=== PATIENT | male | born 1980 | race Two or more races ===

== ENCOUNTER 2020-05-20 09:16 | Outpatient (CLI) | payer OTHER ==
--- NOTE | 2020-05-20 10:06 | SLEEP CARE CONSULTATION ---
Information from patient questionnaire entered by Josee Omalley. I have reviewed and concur with the information entered by Josee Omalley. This document represents the service I personally performed and the decisions made by me, Jennifer Faith MD, [facility]. History of Present Illness Service Date and Time: 05/20/2020915 Reason for Visit: New patient Chief Complaint: reports: Unrefreshed sleep, Snoring, Excessive daytime sleepiness, Observed pauses in breathing Date of Onset: 4-5 years Usual bedtime: 2200 Time it takes to fall asleep: 2-3 hours Snores at night: Yes Observed to quit breathing while asleep: Yes Sleeps alone due to snoring: Yes (sometimes) Number of times waking at night: 1-2 Reasons for waking at night: reports: Snoring Toss, Turn, or Twitch while sleeping: Yes Recalls having dreams: No Usually gets out of bed at: 0600 Feels refreshed in the morning: No Morning headache: No Sleepy or fatigued during the day: Yes Ever fallen asleep while driving: No Takes day naps: Yes (sometimes) Dreams during day naps: No Prior sleep studies: No Additional HPI information: I had the pleasure of seeing Mr. Jensen today regarding the possibility of him having a sleep disorder. As you know, he is a 39 year old gentleman who complains of loud snore, observed apneas, unrefreshed sleep, and excessive daytime sleepiness for the past 4 5 years. He also has sleep onset insomnia. Subjective Initial [place] Sleepiness Scale score: 12 Past Medical History Past Medical History: reports: Hypertension (not on medication) Social History The patient's occupation is active . Patient is and lives in [place]. Have you smoked in the past 12 months: Yes Cigarettes per day (20/pack): 1 (10 per week) Years of smokin Quit date: on and off Smoking Pack Years: 0 Alcohol use: Yes Alcohol amount and frequency: 6 beers/weekend Caffeine use: Yes Caffeine amount and frequency: 2 cups coffee/day Family History Family history of sleep disordered breathing: No Allergies and Home Medications Drug allergies reviewed: Yes Home medication list reviewed: Yes (None) Review of Systems Cardiovascular: reports: high blood pressure, chest pain Respiratory: denies: shortness of breath, wheeze, sputum production, chronic cough, other Gastrointestinal: denies: heartburn, difficulty swallowing, nausea, vomitting, diarrhea, abdominal pain, other Urinary: denies: incontinence, frequency, urgency, impotence, other Neurological: denies: headaches, seizure, head trauma, disorientation, speech dysfunction, gait or balance problems, fainting or unconsciousness, other Psychiatric: denies: Attention Deficit Hyperactivity, anxiety, depression, mood disorder, claustrophobia, other Ear/Nose/Throat: denies: nasal congestion, sinus problems, nose bleeds, dry mouth/throat, hoarseness, injury to nose, tonsillectomy, wisdom teeth removed, other Endocrine: denies: thyroid disease, history of goiter, sluggishness, too hot or cold, excessive thirst, increased appetite, increased urination, unexplained weakness, other Musculoskeletal: reports: back pain Immunologic: denies: sneezing, rash, itching, allergies to food or environment, other Physical Exam Vital signs obtained and entered by: To minimize the risk of COVID-19 exposure, detailed exam was not performed. Height: 5 ft 6 in Weight: 185 lb Body Mass Index: 29.8 BMI Classification: Overweight Impression and Plan IMPRESSION: 1. Obstructive Sleep Apnea-Hypopnea Syndrome, as suggested by history of loud and irregular snoring, observed cessation of breath while asleep, unrefreshed sleep, and daytime hypersomnolence. Narrow oropharynx and obesity are common predisposing factors for obstructive sleep apnea-hypopnea syndrome. Untreated obstructive sleep apnea can also cause hypertension. Pathophysiology of sleep- disordered breathing was discussed. I recommend proceeding to polysomnography to confirm the diagnosis and to assess severity. If he has significant sleep disordered breathing, a manual CPAP titration study will also be performed to find the optimal treatment pressure. I informed the patient of what the sleep studies involve and after some discussion, he agreed to proceed. 2. Insomnia, involving the sleep onset. This is due to delayed sleep phase syndrome. Because he wakes up between 9 10 am on weekends, his physiologic bedtime is not until 1 am. Therefore, going to bed at 10 pm on week nights is too early. The solution is to not wake up any later than 7 am on weekends. Plan: 1. Schedule polysomnography + manual CPAP titration study 2. Avoid long distance driving or when feeling sleepy. 3. Avoid alcohol, sedative and muscle relaxant around bedtime. 4. Attempt to some lose weight. 5. Maintain a regular wake up time and spend no more than 8 hours in bed at night. Avoid naps. 6. Return in 1 to 2 weeks after the study to discuss results and initiate therapy. Visit Type: In Office Time Spent with Patient (minutes): 15 Provider Statement: I spent 100% of the Face to Face Visit with the patient with greater than 50% spent counseling the patient and coordination of care.
== END 2020-05-20 09:17 | disposition home or self-care (01) ==
LOC: SC 09:16
PROVIDERS: ATTEND Internal Medicine Pulmonary Disease
DX: R06.83 Snoring (principal); G47.21 Circadian rhythm sleep disorder, delayed sleep phase type; R06.81 Apnea, not elsewhere classified; G47.8 Other sleep disorders; G47.10 Hypersomnia, unspecified; F17.210 Nicotine dependence, cigarettes, uncomplicated; E66.3 Overweight; Z68.29 Body mass index [BMI] 29.0-29.9, adult; I10 Essential (primary) hypertension
CPT/HCPCS: 99203; 99212

== ENCOUNTER 2020-06-17 19:13 | Outpatient (CLI) | payer OTHER | END 2020-06-17 19:14 | disposition home or self-care (01) | LOC: SC 19:13 | PROVIDERS: ATTEND Internal Medicine Pulmonary Disease | DX: G47.33 Obstructive sleep apnea (adult) (pediatric) (principal); G47.61 Periodic limb movement disorder | CPT/HCPCS: 95810 ==

== ENCOUNTER 2020-06-19 11:16 | Outpatient (CLI) | payer OTHER ==
--- NOTE | 2020-06-19 11:49 | SLEEP CARE CONSULTATION ---
Information from patient questionnaire entered by Alise Crane. I have reviewed and concur with the information entered by Alise Crane. This document represents the service I personally performed and the decisions made by , Sofia Boone ARNP. History of Present Illness Service Date and Time: 06/19/2020 1116 Initial [place] Sleepiness Scale score: 12 (in 2020) Current [place] Sleepiness Scale score: 14 Additional HPI information: KAREN NGO returns for follow up and results of the recently performed polysomnography. I explained the pathophysiology behind obstructive sleep apnea. We then spent quite a bit of time discussing different treatment options. For mild obstructive sleep apnea, surgery and oral appliance are alternatives to nasal CPAP therapy but in moderate or severe cases, nasal CPAP is the most effective and reliable treatment. Because apnea is primarily in supine position, then positional management therapy could be effective. Methods discussed such as positioning with pillows, using a T-shirt with tennis balls in the back, and shown commercial products that have a pillow format on back to prevent supine sleep. I reviewed the impact of weight changes on sleep apnea and strongly recommended losing weight. After some discussion, the patient opted to go with the nasal CPAP therapy. Nasal autoCPAP set at 4-15 cmH20 will be ordered with rationale explained. A manual titration study will be ordered if unable to find optimal pressure with office adjustments. I explained how CPAP machine works with sample devices [employer] Dreamstation and [employer] [id number] and what to expect when using the machine. Using CPAP every night in order to get used to it was emphasized. Patient advised to put CPAP mask on before getting into bed so as not to fall asleep without CPAP. To assist acclimation to CPAP use, it could also be used for a short time during day while reading or watching TV. The patient was instructed to call the CPAP supplier to discuss any mechanical problem that may occur. If the mask given is uncomfortable or is difficult to keep on through the night even with adjustment, contact the CPAP supplier as many will replace with another mask style if notified before 30 days. If snoring or perceives is not getting enough air or too much air from the machine, notify this office. AAS patient education PAP tips reviewed and given to patient. Patient counseled not drink alcohol less than 4 hours before bedtime as it can increase snoring and apnea. Patient was cautioned about risks of drowsy driving until sleepiness symptoms resolve. Sleep Study - Results Type of Sleep Study: Polysomnography Prior sleep studies: No Polysomnography/Home Sleep Study results: IMPRESSION: The quality of the study is good. The patient had reduced sleep efficiency due to sleep onset insomnia and frequent awakenings during the night. The sleep architecture was abnormal for sleep fragmentation and reduced amount of time spent in slow wave sleep (N3). Respiratory monitoring showed mild obstructive sleep apnea-hypopnea (AHI = 7.8) associated with frequent arousals, oxyhemoglobin desaturation and mild hypoxia (shandra oxygen saturation of 89%). The respiratory events occurred almost exclusively during supine sleep (supine AHI = 15.6; non-supine = 1.23). Snore was infrequent and light in intensity. There was severe periodic leg movement of sleep contributing to the sleep fragmentation. Cardiac rhythm was normal sinus rhythm without significant arrhythmia. No abnormal behavior (parasomnia) observed during the night. Allergies and Home Medications Drug allergies reviewed: Yes (NKDA) Home medication list reviewed: Yes (no changes) Review of Systems Review of systems same as previous: Yes (no changes) Physical Exam Heart Rate: 82 O2 Saturation: 98 Height: 5 ft 6 in Weight: 190 lb Body Mass Index: 30.7 BMI Classification: Obese Impression and Plan 1. Obstructive Sleep Apnea-Hypopnea Syndrome, mild, with lowest oxygen saturation of 89%. This is the possible cause of the patients symptoms of unrefreshed sleep, and excessive daytime sleepiness. Patient also advised to keep to a consistent sleep schedule and get up at the same time each day. He was also advised to maintain about 7-9 hours a of sleep nightly. Positive pressure therapy could benefit his hypertension and I highly recommended using the CPAP machine, patient agreed with plan. As mentioned above, the patient will be started on nasal autoCPAP therapy with pressure set at 4-15 cmH2O. Compliance guidelines also reviewed. A copy of compliance guidelines will be given for reference at check out. Because the apnea is more severe supine, I instructed to avoid sleeping supine using pillow positioning until able to start CPAP use. 2. Periodic limb movement, severe, that did contribute to fragmentation of the patients sleep. Periodic limb movement of sleep (PLMS) is characterized by episodes of repetitive limb movements that occur during sleep and usually involve the lower limbs. The etiology is unknown but can be associated with restless leg syndrome (RLS), neuropathy, spinal cord diseases, kidney disease, rheumatological disorders, narcolepsy, obstructive sleep apnea, and REM sleep behavior disorder. Other factors that can increase PLMS and/or RLS are heredity and iron deficiency as reflected by a low serum ferritin level below 50 to 75mcg / L. Several medications can precipitate or aggravate PLMS such as selective serotonin re-uptake inhibitor antidepressants, tricyclic antidepressants, lithium, and dopamine receptor antagonists with the exception of bupropion. Caffeine can also aggravate PLMS and should be avoided. Sleep hygiene methods can also improve sleep as well as lifestyle changes such as regular exercise. Patient was advised that further evaluation is indicated if his symptoms do not improve or become worse. * Nasal auto CPAP therapy, pressure at 4-15 cm H2O. * Follow up with PCP on severe periodic limb movement * Attempt to lose weight. * Avoid alcohol consumption near bedtime. * Avoid supine sleep until using CPAP. * The patient is again cautioned about driving until sleepiness completely res olves. * Return one month after CPAP obtained. I will assess response to therapy and compliance at that time. Visit Type: In Office Time Spent with Patient (minutes): 19 Provider Statement: I spent 100% of the Face to Face Visit with the patient with greater than 50% spent counseling the patient and coordination of care.
== END 2020-06-19 11:17 | disposition home or self-care (01) ==
LOC: SC 11:16
PROVIDERS: ATTEND Nurse Practitioner Family
DX: G47.33 Obstructive sleep apnea (adult) (pediatric) (principal); G47.61 Periodic limb movement disorder; E66.9 Obesity, unspecified; Z68.30 Body mass index [BMI] 30.0-30.9, adult
CPT/HCPCS: 99212; 99213

== ENCOUNTER 2020-10-16 12:55 | Outpatient (CLI) | payer OTHER ==
--- NOTE | 2020-10-16 13:44 | SLEEP CARE CONSULTATION ---
Information from patient questionnaire entered by Madhav Sanabria. I have reviewed and concur with the information entered by Madhav Sanabria. This document represents the service I personally performed and the decisions made by , Sofia Boone ARNP. History of Present Illness Service Date and Time: 10/16/2020 1255 Previous diagnosis: Mild, Obstructive Sleep Apnea-Hypopnea Syndrome AHI: 7.8 Reason for follow up: first compliance (07/23/20) Equipment type: CPAP Equipment obtained from: Other ([facility]; got initial supplies so far) Mask style: Full face Mask brand: Resmed Backup mask available: No (will keep mask once replaced to have a back up) Last cushion change: 2 weeks ago Prior sleep studies: No Year and Where: 2019 [facility] Type of Sleep Study: Polysomnography HPI additional information: KAREN NGO was diagnosed to have mild, AHI 7.8, obstructive sleep apnea- hypopnea syndrome and returned today for CPAP therapy first compliance follow- up. CPAP Compliance Data - Data Reviewed with Patient Average duration of nightly device use: 3 h 4 min Compliance rate %: 13 Current pressure setting (cmH2O): 4-15 (median 5.7, average 8.3 and max 9.4 cmH2O) Average residual AHI: 1.5 Central apnea: 0.1 Obstructive apnea: 0.3 Subjective Patient concerns: reports: mask discomfort (whole mask hard to sleep in), air b lowing in eyes (occasional small amounts with face movement), dry mouth, nose, throat. denies: aerophagia, mask leak noise, condensation in mask/hose, nasal congestion, epistaxis, other Observed to snore while using device: No Current pressure setting perceived as: comfortable On therapy, patient: reports: sleeping better, awakening more refreshed, being more awake and alert during the day, more rested overall. denies: drowsiness while driving Initial [place] Sleepiness Scale score: 12 (in 2019) Current [place] Sleepiness Scale score: 14 Allergies and Home Medications Drug allergies reviewed: Yes (NKDA) Home medication list reviewed: Yes (no changes) Review of Systems Review of systems same as previous: Yes (no changes) Physical Exam Heart Rate: 68 O2 Saturation: 99 Height: 5 ft 6 in Weight: 199 lb Body Mass Index: 32.1 BMI Classification: Obese Impression and Plan 1. Obstructive Sleep Apnea-Hypopnea Syndrome, mild, with poor treatment compliance and good apnea control. On CPAP therapy, the patient has better sleep quality and is more rested overall. Karen states he has already seen some benefits because he is waking up feeling refreshed with energy and has reduced naps during the day. He has had some mask discomfort that causes him to take the mask off a few hours after going to sleep. This is usually caused by him changing to sleep on his side or stomach. He gets a little bit of air leaking in his eyes and it gets hard to tolerate the mask at that point. Mask leaks can be reduced by washing mask daily and changing mask cushions more frequently to improve mask seal and comfort. Additionally, mask leaks predominately from when patient sleeps on their side can be reduced by using a CPAP pillow. A CPAP pillow sample was shown. This and other styes can be purchased online. He has also had some mouth dryness in the mornings. Oral dryness can be reduced by adjusting humidity setting higher or heated hose lower or by adjusting both settings. Verbal instructions given on how to change humidity and heated hose settings with rationale explaining why to change. I encouraged him to increase time in the mask to at least 4 hours and try not to skip any nights of use. He voiced understanding. I will adjust his pressure to 6-9 cmH2O to reflect his pressure usage. Patient's apnea severity and rationale for treatment to reduce apnea, improve sleep quality and reduce cardiovascular and cerebrovascular events was reviewed. I also reviewed the benefit of consistent device use of CPAP for hypertension. * Change auto CPAP pressure to 6-9 cmH2O * Notify me if snoring with mask or feeling that the pressure is too much or too little * Attempt to lose weight * Call this office if any problems using CPAP * Return for follow up in 1-2 months, or sooner if concerns arise Counseling Topics: Spare mask, Weight loss health impact Visit Type: In Office Time Spent with Patient (minutes): 22 Provider Statement: I spent 100% of the Face to Face Visit with the patient with greater than 50% spent counseling the patient and coordination of care.
== END 2020-10-16 12:56 | disposition home or self-care (01) ==
LOC: SC 12:55
PROVIDERS: ATTEND Nurse Practitioner Family
DX: G47.33 Obstructive sleep apnea (adult) (pediatric) (principal); E66.9 Obesity, unspecified; Z68.32 Body mass index [BMI] 32.0-32.9, adult
CPT/HCPCS: 99212; 99213

== ENCOUNTER 2020-11-21 12:45 | Outpatient (CLI) | payer OTHER ==
--- NOTE | 2020-11-21 13:33 | SLEEP CARE CONSULTATION ---
Information from patient questionnaire entered by Madhav Sanabria. I have reviewed and concur with the information entered by Madhav Sanabria. This document represents the service I personally performed and the decisions made by me, Sofia Boone ARNP. History of Present Illness Service Date and Time: 11/21/2020 1245 Previous diagnosis: Mild, Obstructive Sleep Apnea-Hypopnea Syndrome AHI: 7.8 Reason for follow up: one month (followup - pressure change) Equipment obtained from: Other ([facility]; getting supplies as needed) Mask style: Full face Mask brand: Resmed Backup mask available: Yes (old mask) Last cushion change: 2 weeks ago Prior sleep studies: No Type of Sleep Study: Polysomnography HPI additional information: KAREN NGO was diagnosed to have mild, AHI 7.8, obstructive sleep apnea- hypopnea syndrome and returned today for CPAP therapy one month pressure change follow-up. CPAP Compliance Data - Data Reviewed with Patient Average duration of nightly device use: 4 h 17 min Compliance rate %: 57 Current pressure setting (cmH2O): 6-9 Average residual AHI: 1.6 Central apnea: 0.2 Obstructive apnea: 0.6 Subjective Patient concerns: denies: aerophagia, mask discomfort, air blowing in eyes, condensation in mask/hose, nasal congestion, dry mouth, nose, throat, epistaxis, other Observed to snore while using device: No Current pressure setting perceived as: comfortable On therapy, patient: reports: sleeping better, awakening more refreshed, being more awake and alert during the day, more rested overall. denies: drowsiness while driving Initial [place] Sleepiness Scale score: 12 (in 2019) Current [place] Sleepiness Scale score: 8 Allergies and Home Medications Drug allergies reviewed: Yes (NKDA) Home medication list reviewed: Yes (no changes) Review of Systems Review of systems same as previous: Yes (no changes) Physical Exam Heart Rate: 92 O2 Saturation: 98 Height: 5 ft 6 in Weight: 197 lb Body Mass Index: 31.8 BMI Classification: Obese Impression and Plan 1. Obstructive Sleep Apnea-Hypopnea Syndrome, mild, with fair treatment compliance and good apnea control. On CPAP therapy, the patient has better sleep quality and is more rested overall. He has brought up his compliance from 20% to 57% from his last appointment. I discussed with him increasing the time in his mask since he has many days with his time less than 4 hours using the CPAP machine. I also reviewed with patient that he will get more benefits with increased time using the CPAP machine. He was advised to increase time by at least an hour on average to get his compliance numbers up. He voiced understanding and agreement with plan. Patient's apnea severity and rationale for treatment to reduce apnea, improve sleep quality and reduce cardiovascular and cerebrovascular events was reviewed. I also reviewed the benefit of consistent device use of CPAP for hypertension. * Continue autoCPAP pressure at 6-9 cmH2O * Notify me if snoring with mask or feeling that the pressure is too much or too little * Try to lose weight * Call this office if any problems using CPAP * Return for follow up in 1-2 months, or sooner if concerns arise Counseling Topics: Spare mask, Weight loss health impact Visit Type: In Office Time Spent with Patient (minutes): 14 Provider Statement: I spent 100% of the Face to Face Visit with the patient with greater than 50% spent counseling the patient and coordination of care.
== END 2020-11-21 12:46 | disposition home or self-care (01) ==
LOC: SC 12:45
PROVIDERS: ATTEND Nurse Practitioner Family
DX: G47.33 Obstructive sleep apnea (adult) (pediatric) (principal); E66.9 Obesity, unspecified; Z68.31 Body mass index [BMI] 31.0-31.9, adult
CPT/HCPCS: 99212

== ENCOUNTER 2021-01-09 12:44 | Outpatient (CLI) | payer OTHER ==
--- NOTE | 2021-01-09 13:12 | SLEEP CARE CONSULTATION ---
Information from patient questionnaire entered by Alise Crane. I have reviewed and concur with the information entered by Alise Crane. This document represents the service I personally performed and the decisions made by , Sofia Boone ARNP. History of Present Illness Service Date and Time: 01/09/2021 1244 Previous diagnosis: Mild, Obstructive Sleep Apnea-Hypopnea Syndrome AHI: 7.8 (in 2019) Reason for follow up: other (6 week ) Equipment type: CPAP Equipment obtained from: Other ([facility]; getting supplies as needed) Mask style: Full face Backup mask available: Yes (old mask) Last cushion change: 1 month Prior sleep studies: Yes Year and Where: 2019 - [facility] Type of Sleep Study: Polysomnography HPI additional information: KAREN NGO was diagnosed to have mild, AHI 7.8, obstructive sleep apnea- hypopnea syndrome and returned today for CPAP therapy 6 week compliance follow- up. CPAP Compliance Data - Data Reviewed with Patient Average duration of nightly device use: 4 hr 52 min Compliance rate %: 50 (42 days) Current pressure setting (cmH2O): 6-9 Humidity settin Average residual AHI: 2.2 Subjective Missed days of use due to: reports: mask issues (trying to get used to and tolerate wearing his mask at night) Patient concerns: denies: aerophagia, mask discomfort, air blowing in eyes, mask leak noise, condensation in mask/hose, nasal congestion, dry mouth, nose, throat, epistaxis, other Observed to snore while using device: No Current pressure setting perceived as: comfortable On therapy, patient: reports: sleeping better, awakening more refreshed, being more awake and alert during the day, more rested overall. denies: drowsiness while driving Initial [place] Sleepiness Scale score: 12 (in 2019) Current [place] Sleepiness Scale score: 12 Allergies and Home Medications Home medication list reviewed: Yes (no changes) Review of Systems Review of systems same as previous: Yes (no changes) Physical Exam Heart Rate: 97 O2 Saturation: 98 Height: 5 ft 6 in Weight: 199 lb Body Mass Index: 32.1 BMI Classification: Obese Impression and Plan 1. Obstructive Sleep Apnea-Hypopnea Syndrome, mild, with poor treatment compliance and good apnea control. On CPAP therapy, the patient has better sleep quality and is more rested overall. He feels that he just needs more time to acclimatize to wearing the mask and that it is beginning to become more comfortable. I advised him to wear mask with all sleep and try to make sure that he is getting at least 4 hours nightly with the mask on to bring up compliance. 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 He voiced understanding and agreement with plan. Patient's apnea severity and rationale for treatment to reduce apnea, improve sleep quality and reduce cardiovascular and cerebrovascular events was reviewed. I also reviewed the benefit of consistent device use of CPAP for hypertension. * Continue auto CPAP pressure at 6-9 cmH2O * Notify me if snoring with mask or feeling that the pressure is too much or too little * Attempt to lose weight * Call this office if any problems using CPAP * Return for follow up in 1 month, or sooner if concerns arise Counseling Topics: Spare mask, Weight loss health impact Visit Type: In Office Time Spent with Patient (minutes): 17 Provider Statement: I spent 100% of the Face to Face Visit with the patient with greater than 50% spent counseling the patient and coordination of care.
== END 2021-01-09 12:45 | disposition home or self-care (01) ==
LOC: SC 12:44
PROVIDERS: ATTEND Nurse Practitioner Family
DX: G47.33 Obstructive sleep apnea (adult) (pediatric) (principal); E66.9 Obesity, unspecified; Z68.32 Body mass index [BMI] 32.0-32.9, adult
CPT/HCPCS: 99212

== ENCOUNTER 2021-02-17 11:19 | Outpatient (CLI) | payer OTHER ==
--- NOTE | 2021-02-17 11:42 | SLEEP CARE CONSULTATION ---
Information from patient questionnaire entered by Alise Crane. I have reviewed and concur with the information entered by Alise Crane. This document represents the service I personally performed and the decisions made by , Sofia Boone ARNP. History of Present Illness Service Date and Time: 02/17/2021 1119 Previous diagnosis: Mild, Obstructive Sleep Apnea-Hypopnea Syndrome AHI: 7.8 (in 2019) Reason for follow up: one month Equipment type: CPAP Equipment obtained from: Other ([facility]; getting supplies as needed) Mask style: Full face Backup mask available: Yes (other mask) Last cushion change: last week Prior sleep studies: Yes Year and Where: 2019 - [facility] Type of Sleep Study: Polysomnography HPI additional information: KAREN NGO was diagnosed to have mild, AHI 7.8, obstructive sleep apnea- hypopnea syndrome and returned today for CPAP therapy one month follow-up. CPAP Compliance Data - Data Reviewed with Patient Average duration of nightly device use: 5 hr 30 min Compliance rate %: 53 (trending up) Current pressure setting (cmH2O): 6-9 Humidity settin Average residual AHI: 2.2 Subjective Missed days of use due to: reports: travel Patient concerns: denies: aerophagia, mask discomfort, air blowing in eyes, mask leak noise, condensation in mask/hose, nasal congestion, dry mouth, nose, throat, epistaxis, other Observed to snore while using device: No Current pressure setting perceived as: comfortable On therapy, patient: reports: sleeping better, awakening more refreshed, being more awake and alert during the day, more rested overall. denies: drowsiness while driving Initial [place] Sleepiness Scale score: 12 (in 2019) Current [place] Sleepiness Scale score: 12 Allergies and Home Medications Home medication list reviewed: Yes (no new meds) Review of Systems Review of systems same as previous: Yes (no changes) Physical Exam Heart Rate: 83 O2 Saturation: 98 Height: 5 ft 6 in Weight: 199 lb (with uniform and boots on) Body Mass Index: 32.1 BMI Classification: Obese Impression and Plan 1. Obstructive Sleep Apnea-Hypopnea Syndrome, mild, with poor but improving treatment compliance and good apnea control. On CPAP therapy, the patient has better sleep quality and is more rested overall. 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 His compliance is increasing and he has voiced his intention to continue with CPAP therapy. I will have him follow up in 1 month to recheck compliance before he leaves area the first time. Patient's apnea severity and rationale for treatment to reduce apnea, improve sleep quality and reduce cardiovascular and cerebrovascular events was reviewed. I also reviewed the benefit of consistent device use of CPAP for hypertension. * Continue autoCPAP pressure at 6-9 cmH2O * Notify me if snoring with mask or feeling that the pressure is too much or too little * Attempt to lose weight * Call this office if any problems using CPAP * Return for follow up in one month to recheck compliance, or sooner if concerns arise Counseling Topics: Spare mask, Weight loss health impact Visit Type: In Office Time Spent with Patient (minutes): 12 Provider Statement: I spent 100% of the Face to Face Visit with the patient with greater than 50% spent counseling the patient and coordination of care.
== END 2021-02-17 11:20 | disposition home or self-care (01) ==
LOC: SC 11:19
PROVIDERS: ATTEND Nurse Practitioner Family
DX: G47.33 Obstructive sleep apnea (adult) (pediatric) (principal); E66.9 Obesity, unspecified; Z68.32 Body mass index [BMI] 32.0-32.9, adult
CPT/HCPCS: 99212

== ENCOUNTER 2021-05-19 12:39 | Outpatient (CLI) | payer OTHER ==
--- NOTE | 2021-05-19 13:17 | SLEEP CARE CONSULTATION ---
Information from patient questionnaire entered by Alise Crane. I have reviewed and concur with the information entered by Alise Crnae. This document represents the service I personally performed and the decisions made by , Sofia Boone ARNP. History of Present Illness Service Date and Time: 05/19/2021 1239 Previous diagnosis: Mild, Obstructive Sleep Apnea-Hypopnea Syndrome AHI: 7.8 (in 2019) Reason for follow up: three month Equipment type: CPAP Equipment obtained from: Other ([facility]; getting supplies as needed) Mask style: Full face Backup mask available: Yes (old mask) Last cushion change: 2 weeks ago Prior sleep studies: Yes Year and Where: 2019 - [facility] Type of Sleep Study: Polysomnography HPI additional information: KAREN NGO was diagnosed to have mild, AHI 7.8, obstructive sleep apnea- hypopnea syndrome and returned today for CPAP therapy 3 month follow-up. CPAP Compliance Data - Data Reviewed with Patient Average duration of nightly device use: 6 hr 16 min Compliance rate %: 60 (last 30)(52 for 90 days) Current pressure setting (cmH2O): 6-9 Humidity settin Average residual AHI: 1.4 Subjective Missed days of use due to: reports: illness, travel Patient concerns: denies: aerophagia, mask discomfort, air blowing in eyes, mask leak noise, condensation in mask/hose, nasal congestion, dry mouth, nose, t hroat, epistaxis, other Observed to snore while using device: No Current pressure setting perceived as: comfortable On therapy, patient: reports: sleeping better, awakening more refreshed, being more awake and alert during the day, more rested overall, other (not feeling need for nap in middle of day). denies: drowsiness while driving Initial [place] Sleepiness Scale score: 12 (in 2019) Current [place] Sleepiness Scale score: 10 Allergies and Home Medications Home medication list reviewed: Yes (no changes) Review of Systems Review of systems same as previous: Yes (no changes) Physical Exam Heart Rate: 76 O2 Saturation: 98 Height: 5 ft 6 in Weight: 190 lb Body Mass Index: 30.7 BMI Classification: Obese Impression and Plan 1. Obstructive Sleep Apnea-Hypopnea Syndrome, mild, with fair treatment compliance and good apnea control. On CPAP therapy, the patient has better sleep quality and is more rested overall. Patient has been able to increase his compliance to 60% which is still not reaching the 70% goal. He was sent somewhere for his job and became from his gear. He was unable to use his CPAP because it was not where he was out for about a week. He resumed using it as soon as he was able to get it back. The last few weeks of use show he will be in compliance with current use pattern. I will have him follow up again in 1- 2 months to recheck compliance. Patient's apnea severity and rationale for treatment to reduce apnea, improve sleep quality and reduce cardiovascular and cerebrovascular events was reviewed. I also reviewed the benefit of consistent device use of CPAP for hypertension. * Continue auto CPAP pressure at 6-9 cmH2O * Notify me if snoring with mask or feeling that the pressure is too much or too little * Attempt to lose weight * Call this office if any problems using CPAP * Return for follow up in 1-2 months, or sooner if concerns arise Counseling Topics: Spare mask, Weight loss health impact Visit Type: In Office Time Spent with Patient (minutes): 15 Provider Statement: I spent 100% of the Face to Face Visit with the patient with greater than 50% spent counseling the patient and coordination of care.
== END 2021-05-19 12:40 | disposition home or self-care (01) ==
LOC: SC 12:39
PROVIDERS: ATTEND Nurse Practitioner Family
DX: G47.33 Obstructive sleep apnea (adult) (pediatric) (principal); E66.9 Obesity, unspecified; Z68.30 Body mass index [BMI] 30.0-30.9, adult
CPT/HCPCS: 99212

== ENCOUNTER 2021-07-15 12:55 | Outpatient (CLI) | payer OTHER ==
--- NOTE | 2021-07-15 13:16 | SLEEP CARE CONSULTATION ---
Information from patient questionnaire entered by Josee Omalley. I have reviewed and concur with the information entered by Josee Omalley. This document represents the service I personally performed and the decisions made by , Sofia Boone ARNP. History of Present Illness Service Date and Time: 07/15/2021 1255 Previous diagnosis: Mild, Obstructive Sleep Apnea-Hypopnea Syndrome AHI: 7.8 (in 2019) Reason for follow up: other (2 month) Equipment type: CPAP Equipment obtained from: Other ([facility]; getting supplies as needed) Mask style: Full face Backup mask available: Yes (old mask) Last cushion change: 2 weeks ago Prior sleep studies: Yes Year and Where: 2019 - [facility] Type of Sleep Study: Polysomnography HPI additional information: KAREN NGO was diagnosed to have mild, AHI 7.8, obstructive sleep apnea- hypopnea syndrome and returned today for CPAP therapy two month follow-up. Sleep Study - Results Type of Sleep Study: Polysomnography Prior sleep studies: Yes Year and Where: 2019 - [facility] CPAP Compliance Data - Data Reviewed with Patient Average duration of nightly device use: 5 hours 50 minutes Compliance rate %: 80 Current pressure setting (cmH2O): 6-9 Average residual AHI: 1.5 Central apnea: .1 Obstructive apnea: .5 Hypopnea: .6 Subjective Missed days of use due to: reports: illness, travel Patient concerns: denies: aerophagia, mask discomfort, air blowing in eyes, mask leak noise, condensation in mask/hose, nasal congestion, dry mouth, nose, throat, epistaxis, other Observed to snore while using device: No Current pressure setting perceived as: comfortable On therapy, patient: reports: sleeping better, awakening more refreshed, being more awake and alert during the day, more rested overall, other (does get anxious when wearing the mask). denies: drowsiness while driving Initial [place] Sleepiness Scale score: 12 (in 2019) Current [place] Sleepiness Scale score: 10 Allergies and Home Medications Home medication list reviewed: Yes (no changes) Review of Systems Review of systems same as previous: Yes (no changes) Physical Exam Heart Rate: 86 O2 Saturation: 98 Height: 5 ft 6 in Weight: 197 lb (with boots/fatigues on) Body Mass Index: 31.8 BMI Classification: Obese Impression and Plan 1. Obstructive Sleep Apnea-Hypopnea Syndrome, mild, with good treatment compliance and good apnea control. On CPAP therapy, the patient has better sleep quality and is more rested overall. Patient has managed to bring up his compliance to 80%. He is comfortable with current pressure settings and has significant improvement of his sleep apnea. He occasionally does have some anxiety when using the mask and has to take it off after only a few hours. He has been persevering through it and has been able to bring up his compliance. Patient states he has not been able to lose any weight recently but will continue to try. Patient was encouraged to lose weight for their overall health and to reduce apneas. Patient's apnea severity and rationale for treatment to reduce apnea, improve sleep quality and reduce cardiovascular and cerebrovascular events was reviewed. I also reviewed the benefit of consistent device use of CPAP for hypertension. 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 He is asking about getting enough supplies to use while he is gone. I instructed him to contact his DME company to see if he can arrange for enough supplies for his deployment. He voiced understanding and agreement. * Continue auto CPAP pressure at 6-9 cmH2O * Contact DME for supplies enough to take on deployment * Notify me if snoring with mask or feeling that the pressure is too much or too little * Attempt to lose weight * Call this office if any problems using CPAP * Return for follow up in 1 year, or sooner if concerns arise Counseling Topics: Spare mask, Weight loss health impact Visit Type: In Office Time Spent with Patient (minutes): 14 Provider Statement: I spent 100% of the Face to Face Visit with the patient with greater than 50% spent counseling the patient and coordination of care.
== END 2021-07-15 12:56 | disposition home or self-care (01) ==
LOC: SC 12:55
PROVIDERS: ATTEND Nurse Practitioner Family
DX: G47.33 Obstructive sleep apnea (adult) (pediatric) (principal); E66.9 Obesity, unspecified; Z68.31 Body mass index [BMI] 31.0-31.9, adult
CPT/HCPCS: 99212

== ENCOUNTER 2022-08-05 08:19 | Outpatient (CLI) | payer OTHER ==
--- NOTE | 2022-08-05 08:55 | SLEEP CARE CONSULTATION ---
Information from patient questionnaire entered by Zonia Patrick. I have reviewed and concur with the information entered by Zonia Patrick. This document represents the service I personally performed and the decisions made by me, Sofia Boone ARNP. History of Present Illness Service Date and Time: 08/05/2022 08 Previous diagnosis: Mild, Obstructive Sleep Apnea-Hypopnea Syndrome AHI: 7.8 (in 2019) Reason for follow up: annual (LAST SEEN06/2021) Equipment type: CPAP (RESMED) Equipment obtained from: Other ([facility]; getting supplies as needed) Mask style: Full face Backup mask available: Yes (old mask) Last cushion change: 1 week Prior sleep studies: Yes Year and Where: 2019 - [facility] Type of Sleep Study: Polysomnography HPI additional information: KAREN NGO was diagnosed to have mild, AHI 7.8, obstructive sleep apnea- hypopnea syndrome and returned today for CPAP therapy annual follow-up. Sleep Study - Results Type of Sleep Study: Polysomnography Prior sleep studies: Yes Year and Where: 2019 - [facility] CPAP Compliance Data - Data Reviewed with Patient Average duration of nightly device use: 4 hours 11 minutes Compliance rate %: 44 (144/180 days used) Current pressure setting (cmH2O): 6-9 Average residual AHI: 2.0 Central apnea: 0.1 Obstructive apnea: 1.9 Subjective Missed days of use due to: reports: travel (on deployment for 8-9 months), other (anxiety with mask use) Patient concerns: denies: aerophagia, mask discomfort, air blowing in eyes, mask leak noise, condensation in mask/hose, nasal congestion, dry mouth, nose, throat, epistaxis Observed to snore while using device: No Current pressure setting perceived as: comfortable On therapy, patient: reports: sleeping better, awakening more refreshed, being more awake and alert during the day, more rested overall. denies: drowsiness while driving Initial [place] Sleepiness Scale score: 12 (in 2019) Current [place] Sleepiness Scale score: 9 (08/05/2022) Allergies and Home Medications Drug allergies reviewed: Yes (NKDA) Home medication list reviewed: Yes (Lisinopril 40 mg daily) Review of Systems Review of systems same as previous: Yes (no changes) Physical Exam Vital signs obtained and entered by: ZONIA Avila MA Blood Pressure: 134/90 (RIGHT ARM) Cuff size: regular Heart Rate: 94 O2 Saturation: 98 Height: 5 ft 6 in Weight: 180 lb 9.6 oz Weight change since last visit: 17 lb loss Body Mass Index: 29.1 BMI Classification: Overweight Impression and Plan 1. Obstructive Sleep Apnea-Hypopnea Syndrome, mild, with fair treatment compliance and good apnea control. On CPAP therapy, the patient has better sleep quality and is more rested overall. Patient compliance has suffered with him being on deployment for 8 to 9 months. He also has issues with anxiety when wearing the mask for and will take it off. He is averaging 4 hours and 11 minutes but has many days that he does not use his CPAP. Compliance guidelines reviewed for insurance coverage. Patient was counseled on the difference between meeting compliance and optimal use of CPAP. Optimal use of CPAP is use of CPAP with all sleep to obtain maximum benefit of treatment. Patient is encouraged to use CPAP with all sleep. I will have him follow-up in a few months to recheck his compliance and he states he will continue to try to use it nightly. Patient has significant improvement of their sleep apnea and are satisfied with current CPAP therapy. Patient denies problems with oral dryness, nasal congestion, epistaxis, skin irritation or aerophagia. Patient's apnea severity and rationale for treatment to reduce apnea, improve sleep quality and reduce cardiovascular and cerebrovascular events was reviewed. I also reviewed the benefit of consistent device use of CPAP for hypertension. 2. Overweight, unspecified. Currently patients BMI is 29.1. He has lost weight. 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 He is also trying to eat a healthy diet. Obesity increases the risk of apnea, CPAP pressure requirements and overall health risks especially cardiovascular and diabetes. Thus patient is advised to continue to try to lose weight. * Continue auto CPAP pressure at 6-9 cmH2O * Update supplies * Notify me if snoring with mask or feeling that the pressure is too much or too little * Attempt to lose weight * Call this office if any problems using CPAP * Return for follow up in1 year, or sooner if concerns arise Counseling Topics: Spare mask, Weight loss health impact Visit Type: In Office Time Spent with Patient (minutes): 20 Provider Statement: I spent 100% of the Face to Face Visit with the patient with greater than 50% spent counseling the patient and coordination of care.
[2022-08-05 08:56] VITALS: BP 134/90
== END 2022-08-05 08:20 | disposition home or self-care (01) ==
LOC: SC 08:19
PROVIDERS: ATTEND Nurse Practitioner Family
DX: G47.33 Obstructive sleep apnea (adult) (pediatric) (principal); E66.3 Overweight; Z68.29 Body mass index [BMI] 29.0-29.9, adult
CPT/HCPCS: 99212; 99213

== ENCOUNTER 2022-11-02 08:10 | Outpatient (CLI) | payer OTHER ==
--- NOTE | 2022-11-02 08:46 | SLEEP CARE CONSULTATION ---
Information from patient questionnaire entered by Zonia Patrick. I have reviewed and concur with the information entered by Zonia Patrick. This document represents the service I personally performed and the decisions made by me, Sofia Boone ARNP. History of Present Illness Service Date and Time: 11/02/2022 0810 Previous diagnosis: Mild, Obstructive Sleep Apnea-Hypopnea Syndrome AHI: 7.8 (in 2019) Reason for follow up: three month (F/U) Equipment type: CPAP (RESMED Airsense 10, s/u 06/2020) Equipment obtained from: Other ([facility]; getting supplies as needed) Mask style: Full face Mask brand: Resmed Backup mask available: Yes (old mask) Last cushion change: Tuesday Prior sleep studies: Yes Year and Where: 2019 - [facility] Type of Sleep Study: Polysomnography HPI additional information: KAREN NGO was diagnosed to have mild, AHI 7.8, obstructive sleep apnea- hypopnea syndrome and returned today for CPAP therapy three month follow-up. Sleep Study - Results Type of Sleep Study: Polysomnography Prior sleep studies: Yes Year and Where: 2019 - [facility] CPAP Compliance Data - Data Reviewed with Patient Average duration of nightly device use: 4 hours 28 minutes Compliance rate %: 54 (76/90 days) Current pressure setting (cmH2O): 6-9 Average residual AHI: 1.2 Central apnea: 0.1 Obstructive apnea: 0.5 Average large leak: 0.4 l/min Subjective Missed days of use due to: reports: mask issues (hard to keep on at night, triggers anxiety) Patient concerns: reports: mask discomfort, dry mouth, nose, throat (dry mouth), other (headaches more often with CPAP use). denies: aerophagia, air blowing in eyes, mask leak noise, condensation in mask/hose, nasal congestion Observed to snore while using device: No Current pressure setting perceived as: comfortable On therapy, patient: reports: awakening more refreshed, more rested overall. denies: drowsiness while driving Initial [place] Sleepiness Scale score: 12 (in 2019) Current [place] Sleepiness Scale score: 7 (11/02/22) Allergies and Home Medications Drug allergies reviewed: Yes (NKDA) Home medication list reviewed: Yes (Lisinopril) Review of Systems Review of systems same as previous: Yes (no changes) Physical Exam Vital signs obtained and entered by: ZONIA Avila MA Blood Pressure: 144/88 (LEFT ARM) Cuff size: regular Heart Rate: 83 O2 Saturation: 97 Height: 5 ft 6 in Weight: 188 lb Body Mass Index: 30.3 BMI Classification: Obese Impression and Plan 1. Obstructive Sleep Apnea-Hypopnea Syndrome, mild, with fair treatment compliance and good apnea control. On CPAP therapy, the patient has better sleep quality and is more rested overall. Patient is having issues with anxiety when using his full face mask. He has to take it off and his compliance is reduced. He also feels he is having more headaches when using the CPAP but the pressure feels comfortable. We discussed a mask style change. I will write for a mask refitting for a hybrid full face mask like Dreamwear full face or Resmed Airfit F30i. Patient's apnea severity and rationale for treatment to reduce apnea, improve sleep quality and reduce cardiovascular and cerebrovascular events was reviewed. I also reviewed the benefit of consistent device use of CPAP for hypertension. 2. Obesity, unspecified. Currently patients BMI is 30.3. Obesity increases the risk of apnea, CPAP pressure requirements and overall health risks especially cardiovascular and diabetes. Thus patient is advised to lose weight. * Continue auto CPAP pressure at 6-9 cmH2O * Mask refitting for hybrid full face mask * Notify me if snoring with mask or feeling that the pressure is too much or too little * Attempt to lose weight * Call this office if any problems using CPAP * Return for follow up in 3 months, or sooner if concerns arise Counseling Topics: Spare mask, Weight loss health impact Visit Type: In Office Time Spent with Patient (minutes): 21 Provider Statement: I spent 100% of the Face to Face Visit with the patient with greater than 50% spent counseling the patient and coordination of care.
[2022-11-02 08:47] VITALS: BP 144/88
== END 2022-11-02 08:11 | disposition home or self-care (01) ==
LOC: SC 08:10
PROVIDERS: ATTEND Nurse Practitioner Family
DX: G47.33 Obstructive sleep apnea (adult) (pediatric) (principal); E66.9 Obesity, unspecified; Z68.30 Body mass index [BMI] 30.0-30.9, adult
CPT/HCPCS: 99212; 99213

== ENCOUNTER 2023-01-25 08:13 | Outpatient (CLI) | payer OTHER ==
--- NOTE | 2023-01-25 08:41 | SLEEP CARE CONSULTATION ---
Information from patient questionnaire entered by Zonia Patrick. I have reviewed and concur with the information entered by Zonia Patrick. This document represents the service I personally performed and the decisions made by , Sofia Boone ARNP. History of Present Illness Service Date and Time: 01/25/2023 08 Previous diagnosis: Mild, Obstructive Sleep Apnea-Hypopnea Syndrome AHI: 7.8 (in 2019) Reason for follow up: three month (F/U) Equipment type: CPAP (RESMED Airsense 10, s/u 06/2020) Equipment obtained from: Other ([facility]; getting supplies as needed) Mask style: Full face Backup mask available: No (will keep old mask when replaced) Last cushion change: 1 week Prior sleep studies: Yes Year and Where: 2019 - Done In :60 Seconds Sleep Type of Sleep Study: Polysomnography HPI additional information: [employer] was diagnosed to have mild, AHI 7.8, obstructive sleep apnea- hypopnea syndrome and returned today for CPAP therapy three month follow-up. Sleep Study - Results Type of Sleep Study: Polysomnography Prior sleep studies: Yes Year and Where: 2019 - Done In :60 Seconds Sleep CPAP Compliance Data - Data Reviewed with Patient Average duration of nightly device use: 3 hours 54 minutes Compliance rate %: 40 (81/90 days used) Current pressure setting (cmH2O): 6-9 Average residual AHI: 0.9 Central apnea: 0.1 Obstructive apnea: 0.4 Hypopnea: 0.3 Subjective Missed days of use due to: reports: other (anxiety with mask on) Patient concerns: denies: aerophagia, mask discomfort, air blowing in eyes, mask leak noise, condensation in mask/hose, nasal congestion, dry mouth, nose, throa t, epistaxis Observed to snore while using device: No Current pressure setting perceived as: comfortable On therapy, patient: reports: sleeping better, awakening more refreshed, being more awake and alert during the day, more rested overall. denies: drowsiness while driving Initial [place] Sleepiness Scale score: 12 (in 2019) Current [place] Sleepiness Scale score: 9 Allergies and Home Medications Known drug allergies: No Drug allergies reviewed: Yes Home medication list reviewed: Yes (no changes) Allergy and home medication list: Allergies No Known Drug Allergies Allergy Review of Systems Review of systems same as previous: Yes (no changes) Physical Exam Vital signs obtained and entered by: ZONIA Avila MA Blood Pressure: 126/78 (LEFT ARM) Cuff size: regular Heart Rate: 77 O2 Saturation: 97 Height: 5 ft 6 in Weight: 184 lb 9.6 oz Body Mass Index: 29.7 BMI Classification: Overweight Impression and Plan 1. Obstructive Sleep Apnea-Hypopnea Syndrome, mild, with fair treatment compliance and good apnea control. On CPAP therapy, the patient has better sleep quality and is more rested overall. Patient is still struggling with anxiety when using his mask. He will take the mask off after 3.5 to 4 hours nightly and this is affecting his compliance. I did write for a mask refitting to try and get in a mask that was less anxiety inducing but apparently he was unable to contact his DME and they did not call him about this. I will have my office staff assist him in getting ahold of his DME to accomplish this task. Compliance guidelines reviewed for insurance coverage. Patient was counseled on the difference between meeting compliance and optimal use of CPAP. Optimal use of CPAP is use of CPAP with all sleep to obtain maximum benefit of treatment. Patient is encouraged to use CPAP with all sleep when able. Patient's apnea severity and rationale for treatment to reduce apnea, improve sleep quality and reduce cardiovascular and cerebrovascular events was reviewed. I also reviewed the benefit of consistent device use of CPAP for hypertension. 2. Overweight, unspecified. Currently patients BMI is 29.7. He would like to lose weight but has been having issues with hip/leg pain after injury that is limiting his activity/exercise ability. Obesity increases the risk of apnea, CPAP pressure requirements and overall health risks especially cardiovascular and diabetes. Thus patient is advised to lose weight. * Continue auto CPAP pressure at 6-9 cmH2O * Notify me if snoring with mask or feeling that the pressure is too much or too little * Attempt to lose weight * Call this office if any problems using CPAP * Return for follow up in 3 months, or sooner if concerns arise Counseling Topics: Spare mask, Weight loss health impact Visit Type: In Office Time Spent with Patient (minutes): 11 Provider Statement: I spent 100% of the Face to Face Visit with the patient with greater than 50% spent counseling the patient and coordination of care.
[2023-01-25 09:01] VITALS: BP 126/78
== END 2023-01-25 08:14 | disposition home or self-care (01) ==
LOC: SC 08:13
PROVIDERS: ATTEND Nurse Practitioner Family
DX: G47.33 Obstructive sleep apnea (adult) (pediatric) (principal); E66.3 Overweight; Z68.29 Body mass index [BMI] 29.0-29.9, adult
CPT/HCPCS: 99212

== ENCOUNTER 2023-05-10 08:00 | Outpatient (CLI) | payer OTHER ==
--- NOTE | 2023-05-10 09:16 | XRAY Report ---
PROCEDURE: Finger(s) RT INDICATIONS: RIGHT 4TH FINGER PAIN TECHNIQUE: AP hand, 2 views of the fourth finger(s) acquired. COMPARISON: None. FINDINGS: Bones: Volar plate fracture of the fourth distal phalanx. Soft tissues: No suspicious soft tissue calcifications or masses. IMPRESSION: Volar plate fracture of the distal fourth phalanx. Reviewed by: Jairo Tate on 05/10/2023 9:15 AM PDT Approved by: Jairo Tate on 05/10/2023 9:15 AM PDT Station ID: [id number]
== END 2023-05-10 23:59 | disposition home or self-care (01) ==
LOC: DI.WOS 08:00
PROVIDERS: ATTEND Orthopaedic Surgery
DX: S62.634A Displaced fracture of distal phalanx of right ring finger, initial encounter for closed fracture (principal)